=== PATIENT | male | born 1965 | race Two or more races ===

== ENCOUNTER 2024-02-07 21:56 | Inpatient (IN) | payer OTHER ==
[~2024-02-07] VITALS: Ht 180.3 cm; Wt 104.2 kg
[2024-02-07 22:00] VITALS: BP 131/68; PULSE 84; RESP 25; TEMP 99.1; O2SAT 98
[2024-02-07 22:05] VITALS: PULSE 93; RESP 33; O2SAT 99
[2024-02-07] MEDS ORDERED: MAGNESIUM HYDROXIDE SUSPENSION 30 ML UDCUP PO PRN (22:15)
[2024-02-07] MEDS ORDERED: ZOLPIDEM TARTRATE 5 MG TABLET PO PRN (22:15)
[2024-02-07] MEDS ORDERED: ONDANSETRON HCL 4 MG/2 ML VIAL IVP PRN (22:15)
[2024-02-07] MEDS ORDERED: BISACODYL 10 MG RECTAL RECTAL SUPPOSITORY PR PRN (22:15)
[2024-02-07] MEDS ORDERED: DEXTROSE 50%-WATER 25 GM/50 ML SYRINGE IVP PRN (22:45)
[2024-02-07 23:42] LABS: EOSINOPHILS % (AUTO) 0.5 % (1.0-6.0); HEMATOCRIT 40.6 % (41-53); HEMOGLOBIN 13.3 g/dL (13.5-17.5); LYMPHOCYTES # (AUTO) 2.1 K/uL (1.0-4.8); LYMPHOCYTES % (AUTO) 16.1 % (22.0-44.0); MEAN CORPUSCULAR HEMOGLOBIN 30.2 pg (26.0-34.0); MEAN CORPUSCULAR HGB CONC 32.8 G/dL (31.0-37.0); MEAN CORPUSCULAR VOLUME 92 fL (80-100); MONOCYTES # (AUTO) 0.7 K/uL (0.1-1.0); MONOCYTES % (AUTO) 5.6 % (2.0-9.0); NEUTROPHILS # (AUTO) 9.9 K/uL (1.8-7.7); NEUTROPHILS % (AUTO) 76.8 % (40.0-70.0); PLATELET COUNT (AUTO) 289 K/uL (150-450); WHITE BLOOD COUNT (AUTO) 12.9 K/uL (4.5-11.0)
[2024-02-07 23:49] LABS: ABG A-A DIFF O2 131.7 mmHg (10-20.0); ABG CARBOXYHEMOGLOBIN 0.5 % (0.5-1.5); ABG HCO3 23.7 mmol/L (21.0-28.0); ABG METHEMOGLOBIN 0.3 % (0.0-1.5); ABG OXYGEN CONTENT 18.3 mL/dL (15.0-23.0); ABG OXYGEN SATURATION 95.6 % (94.0-98.0); ABG OXYHEMOGLOBIN 94.8 % (94.0-98.0); ABG PCO2 30 mmHg (32.0-48.0); ABG PH 7.472 (7.350-7.450); ABG TOTAL HEMOGLOBIN 13.7 G/dL (13.5-17.5); ALLEN TEST, BLOOD GAS Positive; O2 DEVICE,BLOOD GAS VENT (ROOM AIR); PEEP,BG 5 cm H2O; PO2, ARTERIAL BG 82.2 mmHg (83.0-108.0); SITE, BLOOD GAS LFT RADIAL; SOURCE, BLOOD GAS ARTERIAL; TEMPERATURE, FAHRENHEIT, BG 99.6 FAHREN (96.0-98.6); VT, ABG 420 ml
[2024-02-07 23:50] LABS: ANION GAP 8 mmol/L (8-16); CALCIUM, TOTAL 8.5 mg/dL (8.8-10.5); CARBON DIOXIDE 23 mmol/L (22-29); CHLORIDE 104 mmol/L (98-107); CREATININE 0.87 mg/dL (0.60-1.30); GLOMERULAR FILTR. RATE CALC > 60 mL/min (>60); GLUCOSE,RANDOM 158 mg/dL (70-110); POTASSIUM 3.6 mmol/L (3.5-5.1); SODIUM SERUM 135 mmol/L (136-145); UREA NITROGEN, BLOOD 14 mg/dL (7-18)
[2024-02-07 23:53] LABS: PROTHROMBIN TIME 9.9 SEC (9.4-11.6)
[2024-02-07 23:58] LABS: ALANINE AMINOTRANSFERASE 19 U/L (12-78); ALBUMIN 2.6 g/dL (3.4-5.0); ALKALINE PHOSPHATASE 78 U/L (46-116); ASPARTATE AMINOTRANSFERASE 23 U/L (15-37); TOTAL PROTEIN, SERUM 6.2 g/dL (6.4-8.2)
[2024-02-08] VITALS (14 sets, daily range): BP systolic 128–138; BP diastolic 64–89; PULSE 74–97; RESP 25–33; TEMP 99–100.4; O2SAT 92–98
[2024-02-08] MEDS: ETHYL ALCOHOL 62% ANTISEPTIC NASAL SANITIZER 0.6 ML AMPUL NASAL SCH (00:28)
[2024-02-08] MEDS: HEPARIN SODIUM,PORCINE 5,000 UNITS/ML VIAL SQ SCH (00:30)
[2024-02-08] MEDS: PROPOFOL 1000 MG/ISO-OSM 100 ML IV PRN (01:48)
[2024-02-08] MEDS ORDERED: ETOMIDATE 2 MG/ML 10 ML VIAL ONE (02:37)
[2024-02-08] MEDS ORDERED: ROCURONIUM BROMIDE 10 MG/ML 5 ML VIAL ONE (02:46)
[2024-02-08 02:51] LABS: GLUCOMETER DEV NAME(LOC) ICU.S6; GLUCOSE,POINT OF CARE 140 MG/DL (70-110)
[2024-02-08] MEDS: ETOMIDATE 2 MG/ML 10 ML VIAL IVP ONE (03:18)
[2024-02-08] MEDS: ROCURONIUM BROMIDE 10 MG/ML 5 ML VIAL IVP ONE (03:19)
[2024-02-08 03:29] LABS: APPEARANCE,URINE CLEAR (CLEAR); BILIRUBIN,URINE NEGATIVE (NEGATIVE); COLOR,URINE LIGHT YELLOW (YELLOW); GLUCOSE, URINE (UA) 70-100 mg/dL (NEGATIVE); LEUKOCYTE ESTERASE ,URINE NEGATIVE (NEGATIVE); NITRATE,URINE NEGATIVE (NEGATIVE); OCCULT BLOOD,URINE NEGATIVE (NEGATIVE); PH,URINE 6.5 (5.0-8.0); PROTEIN,URINE TRACE mg/dL (NEGATIVE); SPECIFIC GRAVITIY, URINE 1.021 (1.003-1.030); UROBILINOGEN,URINE <=1.0 mg/dL (<=1.0)
[2024-02-08] MEDS: ACETAMINOPHEN 325 MG TABLET PO PRN (03:29)
[2024-02-08 03:30] LABS: BACTERIA,URINE Few /HPF (None Seen); RBC,URINE None Seen /HPF (0-2); SQUAMOUS EPITHELIAL CELL,UR Few /LPF (None Seen); WBC,URINE None Seen /HPF (0-5)
[2024-02-08 06:15] LABS: BASOPHILS % (AUTO) 0.3 % (0.0-2.0); EOSINOPHILS % (AUTO) 0.5 % (1.0-6.0); HEMATOCRIT 39.1 % (41-53); HEMOGLOBIN 13.4 g/dL (13.5-17.5); LYMPHOCYTES # (AUTO) 2.3 K/uL (1.0-4.8); LYMPHOCYTES % (AUTO) 16.1 % (22.0-44.0); MEAN CORPUSCULAR HEMOGLOBIN 30.9 pg (26.0-34.0); MEAN CORPUSCULAR HGB CONC 34.2 G/dL (31.0-37.0); MEAN CORPUSCULAR VOLUME 90 fL (80-100); MONOCYTES # (AUTO) 0.9 K/uL (0.1-1.0); MONOCYTES % (AUTO) 6.4 % (2.0-9.0); NEUTROPHILS # (AUTO) 11.1 K/uL (1.8-7.7); NEUTROPHILS % (AUTO) 76.7 % (40.0-70.0); PLATELET COUNT (AUTO) 264 K/uL (150-450); RED BLOOD CELL COUNT(AUTO) 4.33 MIL/uL (4.50-5.90); RED CELL DISTRIBUTION WIDTH 13.9 % (11.5-14.5); WHITE BLOOD COUNT (AUTO) 14.5 K/uL (4.5-11.0)
[2024-02-08 06:21] LABS: ANION GAP 10 mmol/L (8-16); CALCIUM, TOTAL 8.4 mg/dL (8.8-10.5); CARBON DIOXIDE 24 mmol/L (22-29); CHLORIDE 103 mmol/L (98-107); CREATININE 0.88 mg/dL (0.60-1.30); GLOMERULAR FILTR. RATE CALC > 60 mL/min (>60); GLUCOSE,RANDOM 193 mg/dL (70-110); POTASSIUM 3.6 mmol/L (3.5-5.1); SODIUM SERUM 137 mmol/L (136-145); UREA NITROGEN, BLOOD 12 mg/dL (7-18)
[2024-02-08 06:26] LABS: GLUCOMETER DEV NAME(LOC) ICUN.5; GLUCOSE,POINT OF CARE 178 MG/DL (70-110)
[2024-02-08] MEDS: LISINOPRIL 20 MG TABLET NG SCH (08:37)
[2024-02-08] MEDS: PANTOPRAZOLE SODIUM 40 MG/VIAL IVP SCH (08:37)
[2024-02-08] MEDS: ASPIRIN 81 MG CHEWABLE TABLET NG SCH (08:37)
[2024-02-08] MEDS: DOCUSATE SODIUM 100 MG CAPSULE PO SCH (08:38)
[2024-02-08] MEDS: INSULIN LISPRO 100 UNITS/ML SQ PRN (12:28)
[2024-02-08 14:40] LABS: GLUCOMETER DEV NAME(LOC) ICUN.5; GLUCOSE,POINT OF CARE 186 MG/DL (70-110)
[2024-02-08] MEDS: ATORVASTATIN CALCIUM 40 MG TABLET NG SCH (19:21)
[2024-02-09] VITALS (22 sets, daily range): BP systolic 105–141; BP diastolic 56–80; PULSE 58–95; RESP 25–41; TEMP 98.4–99.8; O2SAT 93–100
[2024-02-09 00:16] LABS: GLUCOMETER DEV NAME(LOC) ICU.S6; GLUCOSE,POINT OF CARE 188 MG/DL (70-110)
[2024-02-09] MEDS: HydrALAZINE HCL 20 MG/ML VIAL IVP PRN (01:26)
[2024-02-09] MEDS: DEXMEDETOMIDINE HCL 400 MCG in SODIUM CHLORIDE 0.9% 96 ML IV PRN (01:58)
[2024-02-09 03:41] LABS: GLUCOMETER DEV NAME(LOC) ICU.S6; GLUCOSE,POINT OF CARE 210 MG/DL (70-110)
[2024-02-09 07:37] LABS: BASOPHILS % (AUTO) 0.7 % (0.0-2.0); HEMATOCRIT 39.7 % (41-53); HEMOGLOBIN 13.6 g/dL (13.5-17.5); LYMPHOCYTES # (AUTO) 1.8 K/uL (1.0-4.8); LYMPHOCYTES % (AUTO) 14.3 % (22.0-44.0); MEAN CORPUSCULAR HEMOGLOBIN 30.9 pg (26.0-34.0); MEAN CORPUSCULAR HGB CONC 34.2 G/dL (31.0-37.0); MEAN CORPUSCULAR VOLUME 91 fL (80-100); MONOCYTES # (AUTO) 0.9 K/uL (0.1-1.0); MONOCYTES % (AUTO) 6.8 % (2.0-9.0); NEUTROPHILS # (AUTO) 9.8 K/uL (1.8-7.7); NEUTROPHILS % (AUTO) 77.2 % (40.0-70.0); PLATELET COUNT (AUTO) 272 K/uL (150-450); RED BLOOD CELL COUNT(AUTO) 4.39 MIL/uL (4.50-5.90); RED CELL DISTRIBUTION WIDTH 13.6 % (11.5-14.5); WHITE BLOOD COUNT (AUTO) 12.7 K/uL (4.5-11.0)
[2024-02-09 07:51] LABS: ANION GAP 8 mmol/L (8-16); CALCIUM, TOTAL 8.3 mg/dL (8.8-10.5); CARBON DIOXIDE 23 mmol/L (22-29); CHLORIDE 100 mmol/L (98-107); CREATININE 0.77 mg/dL (0.60-1.30); GLOMERULAR FILTR. RATE CALC > 60 mL/min (>60); GLUCOSE,RANDOM 191 mg/dL (70-110); POTASSIUM 4.3 mmol/L (3.5-5.1); SODIUM SERUM 131 mmol/L (136-145); UREA NITROGEN, BLOOD 16 mg/dL (7-18)
[2024-02-09 10:11] LABS: GLUCOMETER DEV NAME(LOC) ICUN.5; GLUCOSE,POINT OF CARE 180 MG/DL (70-110)
[2024-02-09 10:18] LABS: ABG BASE EXCESS -1.6 mmol/L (-2.0-3.0); ABG CARBOXYHEMOGLOBIN 0.8 % (0.5-1.5); ABG HCO3 23.8 mmol/L (21.0-28.0); ABG METHEMOGLOBIN 0.7 % (0.0-1.5); ABG OXYGEN CONTENT 17.2 mL/dL (15.0-23.0); ABG OXYGEN SATURATION 97.3 % (94.0-98.0); ABG OXYHEMOGLOBIN 95.8 % (94.0-98.0); ABG PCO2 32 mmHg (32.0-48.0); ABG PH 7.455 (7.350-7.450); ABG TOTAL HEMOGLOBIN 12.7 G/dL (13.5-17.5); PO2, ARTERIAL BG 88.1 mmHg (83.0-108.0); SOURCE, BLOOD GAS ARTERIAL; TEMPERATURE, FAHRENHEIT, BG 99.5 FAHREN (96.0-98.6)
[2024-02-09 10:19] LABS: ABG A-A DIFF O2 159.3 mmHg (10-20.0); ALLEN TEST, BLOOD GAS Positive; CPAP, BG 5 cm H2O; O2 DEVICE,BLOOD GAS VENTILATOR (ROOM AIR); PRESSURE SUPPORT, BG 8 cm H2O; SITE, BLOOD GAS LFT RADIAL; SPONTANEOUS VT, BG 478 ml; VENT MODE, BG CPAP (ROOM AIR)
[2024-02-09] MEDS ORDERED: SODIUM CHLORIDE 0.9% 250 ML IV ONE (14:47)
[2024-02-09] MEDS: SODIUM CHLORIDE 0.9% 1,000 ML IV SCH (14:53)
[2024-02-09] MEDS: CefTRIAXone SODIUM 2 GM in DEXTROSE 5%-WATER 50 ML IV SCH (14:54)
[2024-02-09 15:36] LABS: GLUCOMETER DEV NAME(LOC) ICU.S6; GLUCOSE,POINT OF CARE 184 MG/DL (70-110)
[2024-02-09 18:00] LABS: GLUCOMETER DEV NAME(LOC) ICU.S6; GLUCOSE,POINT OF CARE 176 MG/DL (70-110)
[2024-02-09 20:30] LABS: GLUCOMETER DEV NAME(LOC) ICU.S6; GLUCOSE,POINT OF CARE 191 MG/DL (70-110)
[2024-02-10] VITALS (15 sets, daily range): BP systolic 110–135; BP diastolic 66–73; PULSE 60–68; RESP 21–27; TEMP 98.5–99.7; O2SAT 97–100
[2024-02-10 00:56] LABS: GLUCOMETER DEV NAME(LOC) ICUN.5; GLUCOSE,POINT OF CARE 185 MG/DL (70-110)
[2024-02-10] MEDS ORDERED: SODIUM CHLORIDE 0.9% 250 ML IV ONE ×2 (03:16→21:16)
[2024-02-10 05:46] LABS: GLUCOMETER DEV NAME(LOC) ICUN.5; GLUCOSE,POINT OF CARE 189 MG/DL (70-110)
[2024-02-10 06:06] LABS: BASOPHILS % (AUTO) 0.2 % (0.0-2.0); EOSINOPHILS % (AUTO) 2.5 % (1.0-6.0); HEMATOCRIT 34.5 % (41-53); HEMOGLOBIN 11.7 g/dL (13.5-17.5); LYMPHOCYTES # (AUTO) 1.7 K/uL (1.0-4.8); LYMPHOCYTES % (AUTO) 19.2 % (22.0-44.0); MEAN CORPUSCULAR HGB CONC 33.8 G/dL (31.0-37.0); MEAN CORPUSCULAR VOLUME 92 fL (80-100); MONOCYTES # (AUTO) 0.9 K/uL (0.1-1.0); MONOCYTES % (AUTO) 10.4 % (2.0-9.0); NEUTROPHILS # (AUTO) 5.9 K/uL (1.8-7.7); NEUTROPHILS % (AUTO) 67.7 % (40.0-70.0); PLATELET COUNT (AUTO) 290 K/uL (150-450); RED BLOOD CELL COUNT(AUTO) 3.76 MIL/uL (4.50-5.90); RED CELL DISTRIBUTION WIDTH 13.7 % (11.5-14.5); WHITE BLOOD COUNT (AUTO) 8.7 K/uL (4.5-11.0)
[2024-02-10 06:20] LABS: ANION GAP 8 mmol/L (8-16); CALCIUM, TOTAL 8.2 mg/dL (8.8-10.5); CARBON DIOXIDE 24 mmol/L (22-29); CHLORIDE 102 mmol/L (98-107); CREATININE 0.78 mg/dL (0.60-1.30); GLOMERULAR FILTR. RATE CALC > 60 mL/min (>60); GLUCOSE,RANDOM 194 mg/dL (70-110); POTASSIUM 3.7 mmol/L (3.5-5.1); SODIUM SERUM 134 mmol/L (136-145); UREA NITROGEN, BLOOD 16 mg/dL (7-18)
[2024-02-10 10:17] LABS: ABG BASE EXCESS -1.4 mmol/L (-2.0-3.0); ABG CARBOXYHEMOGLOBIN 0.9 % (0.5-1.5); ABG HCO3 23.7 mmol/L (21.0-28.0); ABG METHEMOGLOBIN 0.8 % (0.0-1.5); ABG OXYGEN CONTENT 15.6 mL/dL (15.0-23.0); ABG OXYGEN SATURATION 96.8 % (94.0-98.0); ABG OXYHEMOGLOBIN 95.2 % (94.0-98.0); ABG PCO2 34 mmHg (32.0-48.0); ABG TOTAL HEMOGLOBIN 11.6 G/dL (13.5-17.5); PO2, ARTERIAL BG 84.7 mmHg (83.0-108.0); SOURCE, BLOOD GAS ARTERIAL; TEMPERATURE, FAHRENHEIT, BG 99.4 FAHREN (96.0-98.6)
[2024-02-10 10:35] LABS: ABG A-A DIFF O2 124.8 mmHg (10-20.0); ALLEN TEST, BLOOD GAS Positive; CPAP, BG 0 cm H2O; O2 DEVICE,BLOOD GAS VENTILATOR (ROOM AIR); PRESSURE SUPPORT, BG 8 cm H2O; SITE, BLOOD GAS RT RADIAL; SPONTANEOUS VT, BG 470 ml; VENT MODE, BG CPAP (ROOM AIR)
[2024-02-10] MEDS: MethylPREDNISolone SOD SUCC 40 MG/ML VIAL IVP SCH (11:19)
[2024-02-10 12:25] LABS: GLUCOMETER DEV NAME(LOC) ICUN.5; GLUCOSE,POINT OF CARE 175 MG/DL (70-110)
[2024-02-10 18:05] LABS: GLUCOMETER DEV NAME(LOC) ICU.S6; GLUCOSE,POINT OF CARE 264 MG/DL (70-110)
[2024-02-11] VITALS (17 sets, daily range): BP systolic 0–163; BP diastolic 58–84; PULSE 49–84; RESP 18–28; TEMP 98–99; O2SAT 87–99
[2024-02-11 05:57] LABS: BASOPHILS % (AUTO) 0.2 % (0.0-2.0); EOSINOPHILS % (AUTO) 0 % (1.0-6.0); HEMOGLOBIN 10.9 g/dL (13.5-17.5); LYMPHOCYTES # (AUTO) 0.7 K/uL (1.0-4.8); MEAN CORPUSCULAR HGB CONC 34.2 G/dL (31.0-37.0); MEAN CORPUSCULAR VOLUME 91 fL (80-100); MONOCYTES # (AUTO) 0.2 K/uL (0.1-1.0); MONOCYTES % (AUTO) 2.6 % (2.0-9.0); NEUTROPHILS # (AUTO) 5.4 K/uL (1.8-7.7); PLATELET COUNT (AUTO) 328 K/uL (150-450); RED BLOOD CELL COUNT(AUTO) 3.53 MIL/uL (4.50-5.90); RED CELL DISTRIBUTION WIDTH 13.5 % (11.5-14.5); WHITE BLOOD COUNT (AUTO) 6.2 K/uL (4.5-11.0)
[2024-02-11 06:08] LABS: NEUTROPHILS % (AUTO) 86.2 % (40.0-70.0)
[2024-02-11 06:11] LABS: ANION GAP 10 mmol/L (8-16); CALCIUM, TOTAL 8.1 mg/dL (8.8-10.5); CARBON DIOXIDE 22 mmol/L (22-29); CHLORIDE 103 mmol/L (98-107); CREATININE 0.88 mg/dL (0.60-1.30); GLOMERULAR FILTR. RATE CALC > 60 mL/min (>60); GLUCOSE,RANDOM 295 mg/dL (70-110); POTASSIUM 4.3 mmol/L (3.5-5.1); SODIUM SERUM 135 mmol/L (136-145); UREA NITROGEN, BLOOD 25 mg/dL (7-18)
[2024-02-11 06:31] LABS: GLUCOMETER DEV NAME(LOC) ICU.S6; GLUCOSE,POINT OF CARE 296 MG/DL (70-110)
[2024-02-11 06:31] LABS: GLUCOMETER DEV NAME(LOC) ICU.S6; GLUCOSE,POINT OF CARE 280 MG/DL (70-110)
[2024-02-11 13:20] LABS: ABG A-A DIFF O2 136.7 mmHg (10-20.0); ABG BASE EXCESS -2.9 mmol/L (-2.0-3.0); ABG CARBOXYHEMOGLOBIN 0.1 % (0.5-1.5); ABG HCO3 22.7 mmol/L (21.0-28.0); ABG METHEMOGLOBIN 0.3 % (0.0-1.5); ABG OXYGEN CONTENT 15.7 mL/dL (15.0-23.0); ABG OXYGEN SATURATION 95.7 % (94.0-98.0); ABG OXYHEMOGLOBIN 95.3 % (94.0-98.0); ABG PCO2 31 mmHg (32.0-48.0); ABG PH 7.455 (7.350-7.450); ABG TOTAL HEMOGLOBIN 11.7 G/dL (13.5-17.5); ALLEN TEST, BLOOD GAS Positive; CPAP, BG 0 cm H2O; O2 DEVICE,BLOOD GAS VENTILATOR (ROOM AIR); PO2, ARTERIAL BG 77.3 mmHg (83.0-108.0); PRESSURE SUPPORT, BG 8 cm H2O; SITE, BLOOD GAS RT RADIAL; SOURCE, BLOOD GAS ARTERIAL; SPONTANEOUS VT, BG 500 ml; TEMPERATURE, FAHRENHEIT, BG 98.6 FAHREN (96.0-98.6); VENT MODE, BG CPAP (ROOM AIR)
[2024-02-11 13:31] LABS: GLUCOMETER DEV NAME(LOC) ICU.S6; GLUCOSE,POINT OF CARE 306 MG/DL (70-110)
[2024-02-11] MEDS: SCOPOLAMINE HYDROBROMIDE 1 MG/72 HOUR PATCH TD ONE (18:04)
[2024-02-11 21:21] LABS: GLUCOMETER DEV NAME(LOC) ICUN.5; GLUCOSE,POINT OF CARE 277 MG/DL (70-110)
[2024-02-11] MEDS: IPRATROPIUM BROMIDE 0.5 MG/2.5 ML NEB SOLUTION NEB PRN (23:12)
[2024-02-11] MEDS: ALBUTEROL SULFATE 2.5 MG/0.5 ML NEB SOLUTION NEB PRN (23:12)
[2024-02-12] VITALS (13 sets, daily range): BP systolic 137–170; BP diastolic 49–74; PULSE 60–81; RESP 16–28; TEMP 97.6–98.9; O2SAT 93–100
[2024-02-12 00:11] LABS: GLUCOMETER DEV NAME(LOC) ICUN.5; GLUCOSE,POINT OF CARE 290 MG/DL (70-110)
[2024-02-12 05:51] LABS: GLUCOMETER DEV NAME(LOC) ICUN.5; GLUCOSE,POINT OF CARE 298 MG/DL (70-110)
[2024-02-12 07:08] LABS: BASOPHILS % (AUTO) 0.2 % (0.0-2.0); EOSINOPHILS % (AUTO) 0 % (1.0-6.0); HEMATOCRIT 39.3 % (41-53); HEMOGLOBIN 12.9 g/dL (13.5-17.5); LYMPHOCYTES # (AUTO) 0.7 K/uL (1.0-4.8); LYMPHOCYTES % (AUTO) 5.2 % (22.0-44.0); MEAN CORPUSCULAR HEMOGLOBIN 30.1 pg (26.0-34.0); MEAN CORPUSCULAR VOLUME 91 fL (80-100); MONOCYTES # (AUTO) 0.6 K/uL (0.1-1.0); MONOCYTES % (AUTO) 4.5 % (2.0-9.0); NEUTROPHILS # (AUTO) 12.7 K/uL (1.8-7.7); PLATELET COUNT (AUTO) 434 K/uL (150-450); RED CELL DISTRIBUTION WIDTH 13.7 % (11.5-14.5); WHITE BLOOD COUNT (AUTO) 14.1 K/uL (4.5-11.0)
[2024-02-12 07:24] LABS: NEUTROPHILS % (AUTO) 90.1 % (40.0-70.0)
[2024-02-12 07:26] LABS: ANION GAP 9 mmol/L (8-16); CALCIUM, TOTAL 8.3 mg/dL (8.8-10.5); CARBON DIOXIDE 23 mmol/L (22-29); CHLORIDE 104 mmol/L (98-107); CREATININE 1.07 mg/dL (0.60-1.30); GLOMERULAR FILTR. RATE CALC > 60 mL/min (>60); GLUCOSE,RANDOM 307 mg/dL (70-110); SODIUM SERUM 136 mmol/L (136-145); UREA NITROGEN, BLOOD 28 mg/dL (7-18)
[2024-02-12 08:41] LABS: GLUCOMETER DEV NAME(LOC) ICU.S6; GLUCOSE,POINT OF CARE 292 MG/DL (70-110)
[2024-02-12] MEDS: INSULIN LISPRO 100 UNITS/ML SQ PRN (12:31)
[2024-02-12 13:35] LABS: GLUCOMETER DEV NAME(LOC) ICU.S6; GLUCOSE,POINT OF CARE 282 MG/DL (70-110)
[2024-02-12] MEDS ORDERED: SODIUM CHLORIDE 0.9% 250 ML IV ONE (15:14)
[2024-02-12] MEDS: MethylPREDNISolone SOD SUCC 40 MG/ML VIAL IVP SCH (22:08)
[2024-02-12] MEDS: DOCUSATE SODIUM 100 MG/10 ML LIQUID UDCUP NG SCH (22:08)
[2024-02-12 22:21] LABS: GLUCOMETER DEV NAME(LOC) ICUN.5; GLUCOSE,POINT OF CARE 253 MG/DL (70-110)
[2024-02-12 22:21] LABS: GLUCOMETER DEV NAME(LOC) ICUN.5; GLUCOSE,POINT OF CARE 210 MG/DL (70-110)
[2024-02-13] VITALS (12 sets, daily range): BP systolic 138–161; BP diastolic 71–87; PULSE 52–79; RESP 20–26; TEMP 98–98.8; O2SAT 95–98
[2024-02-13 01:10] LABS: GLUCOMETER DEV NAME(LOC) ICUN.5; GLUCOSE,POINT OF CARE 168 MG/DL (70-110)
[2024-02-13 06:01] LABS: GLUCOMETER DEV NAME(LOC) ICUN.5; GLUCOSE,POINT OF CARE 229 MG/DL (70-110)
[2024-02-13 06:18] LABS: EOSINOPHILS % (AUTO) 0.1 % (1.0-6.0); HEMOGLOBIN 11.9 g/dL (13.5-17.5); LYMPHOCYTES # (AUTO) 1.2 K/uL (1.0-4.8); LYMPHOCYTES % (AUTO) 10.4 % (22.0-44.0); MEAN CORPUSCULAR HGB CONC 34.1 G/dL (31.0-37.0); MEAN CORPUSCULAR VOLUME 91 fL (80-100); MONOCYTES # (AUTO) 0.6 K/uL (0.1-1.0); MONOCYTES % (AUTO) 5.7 % (2.0-9.0); NEUTROPHILS # (AUTO) 9.3 K/uL (1.8-7.7); NEUTROPHILS % (AUTO) 82.8 % (40.0-70.0); PLATELET COUNT (AUTO) 403 K/uL (150-450); RED BLOOD CELL COUNT(AUTO) 3.85 MIL/uL (4.50-5.90); RED CELL DISTRIBUTION WIDTH 13.8 % (11.5-14.5); WHITE BLOOD COUNT (AUTO) 11.2 K/uL (4.5-11.0)
[2024-02-13 06:35] LABS: ANION GAP 8 mmol/L (8-16); CALCIUM, TOTAL 8.4 mg/dL (8.8-10.5); CARBON DIOXIDE 23 mmol/L (22-29); CHLORIDE 107 mmol/L (98-107); CREATININE 0.91 mg/dL (0.60-1.30); GLOMERULAR FILTR. RATE CALC > 60 mL/min (>60); GLUCOSE,RANDOM 246 mg/dL (70-110); POTASSIUM 3.7 mmol/L (3.5-5.1); SODIUM SERUM 138 mmol/L (136-145); UREA NITROGEN, BLOOD 23 mg/dL (7-18)
[2024-02-13 14:50] LABS: GLUCOMETER DEV NAME(LOC) ICU.S6; GLUCOSE,POINT OF CARE 198 MG/DL (70-110)
[2024-02-13] MEDS: AmLODIPine BESYLATE 10 MG TABLET PO ONE (15:38)
[2024-02-13 16:09] LABS: HEMOGLOBIN A1C 11.8 % (3.8-5.6)
[2024-02-13 20:16] LABS: GLUCOMETER DEV NAME(LOC) 5S.1D; GLUCOSE,POINT OF CARE 230 MG/DL (70-110)
[2024-02-14 00:05] VITALS: BP 156/71; PULSE 55; RESP 22; TEMP 98.7; O2SAT 96
[2024-02-14 04:34] VITALS: BP 166/65; PULSE 55; RESP 20; TEMP 98.3; O2SAT 98
[2024-02-14 06:39] VITALS: BP 139/73; RESP 20; O2SAT 96
[2024-02-14 08:20] VITALS: PULSE 55; PULSE 56; RESP 20; O2SAT 98
[2024-02-14 08:22] VITALS: BP 147/82; PULSE 64; RESP 19; TEMP 98.4; O2SAT 97
[2024-02-14] MEDS: HYDROCODONE/ACETAMINOPHEN 5-325 MG TABLET PO PRN (09:10)
[2024-02-14] MEDS: AmLODIPine BESYLATE 10 MG TABLET PO SCH (09:21)
[2024-02-14 11:25] LABS: GLUCOMETER DEV NAME(LOC) 5S.1D; GLUCOSE,POINT OF CARE 248 MG/DL (70-110)
[2024-02-14 11:25] LABS: GLUCOMETER DEV NAME(LOC) 5S.1D; GLUCOSE,POINT OF CARE 209 MG/DL (70-110)
[2024-02-14 12:23] VITALS: BP 138/69; PULSE 55; RESP 18; TEMP 97.9; O2SAT 96
[2024-02-14] MEDS: MORPHINE SULFATE 2 MG/ML SYRINGE IVP PRN (18:02)
[2024-02-14] MEDS ORDERED: ASPI81TA39 PO (18:51)
[2024-02-14] MEDS ORDERED: ATOR40TA71 PO (18:52)
[2024-02-14] MEDS ORDERED: AMLO10TA55 PO (18:53)
[2024-02-14] MEDS ORDERED: CEFT2VIA60 IM (18:54)
[2024-02-14] MEDS ORDERED: DOCU-119 PO (18:54)
[2024-02-14] MEDS ORDERED: ETHY1MED2 NASAL (18:55)
[2024-02-14] MEDS ORDERED: HEPA500018 SQ (18:59)
[2024-02-14] MEDS ORDERED: LISI20TA24 PO (19:32)
[2024-02-14] MEDS ORDERED: SM500I IV (19:36)
[2024-02-14] MEDS ORDERED: [UNRECOGNIZED DRUG - CODE] IV (19:39)
[2024-02-14] MEDS ORDERED: ACET650S14 PR (19:41)
[2024-02-14] MEDS ORDERED: ALBU0.8311 NEB (19:42)
[2024-02-14] MEDS ORDERED: BISA-72 PO (19:43)
[2024-02-14] MEDS ORDERED: HYDR-4061 PO (19:45)
[2024-02-14] MEDS ORDERED: HYDR20I IVP (19:46)
[2024-02-14] MEDS ORDERED: MAGN800O2 PO (19:49)
[2024-02-14] MEDS ORDERED: ZOLP-280 PO (19:51)
[2024-02-14] MEDS ORDERED: MORP2VIA2 IVP (19:51)
[2024-02-14] MEDS ORDERED: ONDA-104 IVP (19:51)
[2024-02-14] MEDS ORDERED: PANT40VI14 IVP (19:56)
[2024-02-15 20:15] LABS: GLUCOMETER DEV NAME(LOC) 5S.1D; GLUCOSE,POINT OF CARE 242 MG/DL (70-110)
[2024-02-15 20:15] LABS: GLUCOMETER DEV NAME(LOC) 5S.1D; GLUCOSE,POINT OF CARE 240 MG/DL (70-110)
== END 2024-02-14 19:15 | DRG 208 ==
LOC: ICU 22:11 → 5N 02-13 18:29
PROVIDERS: ADMIT Hospitalist; ATTEND Hospitalist
PROC: 5A1945Z Respiratory Ventilation, 24-96 Consecutive Hours (ICD-10-PCS; principal; 2024-02-07)
PROC: 0BH18EZ Insertion of Endotracheal Airway into Trachea, Via Natural or Artificial Opening Endoscopic (ICD-10-PCS; 2024-02-07)
PROC: 05HB33Z Insertion of Infusion Device into Right Basilic Vein, Percutaneous Approach (ICD-10-PCS; 2024-02-09)
PROC: 05HB33Z Insertion of Infusion Device into Right Basilic Vein, Percutaneous Approach (ICD-10-PCS; 2024-02-13)
DX: J69.0 Pneumonitis due to inhalation of food and vomit (principal); J96.01 Acute respiratory failure with hypoxia; E43 Unspecified severe protein-calorie malnutrition; G81.94 Hemiplegia, unspecified affecting left nondominant side; I16.1 Hypertensive emergency; E11.65 Type 2 diabetes mellitus with hyperglycemia; E87.6 Hypokalemia; R91.8 Other nonspecific abnormal finding of lung field; D72.829 Elevated white blood cell count, unspecified; I10 Essential (primary) hypertension; Z89.611 Acquired absence of right leg above knee; Z86.73 Personal history of transient ischemic attack (TIA), and cerebral infarction without residual deficits; Z68.32 Body mass index [BMI] 32.0-32.9, adult
CPT/HCPCS: 36245; 36569; 36600; 70490; 71045; 76937; 80048; 80053; 81001; 82805; 82962; 83036; 83735; 85025; 85610; 87040; 87070; 87081; 87205; 87481; 92526; 92610; 94002; 94003; 94640; 94668; 97112; 97163; 97167; 97530; 97535; J0360; J0696; J1644; J2270; J2470; J2704; J3490; J7030; J7050; J7060; 36415-L1; 36415-TC; J7613